=== PATIENT | female | born 1990 | race African-American/Black ===

== ENCOUNTER 2016-05-13 15:18 | Emergency (ER) | payer SELFPAY ==
[2016-05-13 15:24] VITALS: BP 121/71
--- NOTE | 2016-05-13 18:30 | ER Document Report ---
ED Medical Screen (RME) - General Stated Complaint: FEVER,COUGH,HEADACHE Mode of Arrival: Ambulatory Information source: Patient Notes: Patient presents to the emergency department with complaints of abdominal pain and burning sensation. She reports it started in her breast with her nipples hurting. She also reports constipation last bowel movement 4 days ago. She reports bloody stool when she had a bowel movement. She reports on point ongoing vomiting. With nausea. I have greeted and performed a rapid initial assessment of this patient. A comprehensive ED assessment and evaluation of the patient, analysis of test results and completion of the medical decision making process will be conducted by additional ED providers. TRAVEL OUTSIDE OF THE [place] IN LAST 30 DAYS: No - Related Data Allergies/Adverse Reactions: codeine Allergy (Verified 11/23/15 16:17) Physical Exam - Vital signs Vitals: Temp Pulse Resp BP Pulse Ox 102.5 F H 105 H 16 121/71 97 05/13/16 15:23 05/13/16 15:23 05/13/16 15:23 05/13/16 15:23 05/13/16 15:23 Course - Vital Signs Vital signs: Temp Pulse Resp BP Pulse Ox 102.5 F H 105 H 16 121/71 97 05/13/16 15:23 05/13/16 15:23 05/13/16 15:23 05/13/16 15:23 05/13/16 15:23
== END 2016-05-13 18:30 | disposition left against medical advice (07) ==
LOC: ER 15:18
DX: Z53.21 Procedure and treatment not carried out due to patient leaving prior to being seen by health care provider (principal)

== ENCOUNTER 2016-05-14 20:27 | Emergency (ER) | payer SELFPAY ==
--- NOTE | 2016-05-14 21:32 | ER Document Report ---
ED Medical Screen (RME) - General Stated Complaint: FEVER/EAR/BACK PAIN,CHILLS Time seen by provider: 21:31 Mode of Arrival: Ambulatory Information source: Patient Notes: 25-year-old female presents to ED for headache, fever and ear pain bilaterally back pain chills swollen glands cough and sore throat since Friday night. She states she came to the emergency room last night but the wait was too long so she left. Last menstrual period 04/23/2016. I have greeted and performed a rapid initial assessment of this patient. A comprehensive ED assessment and evaluation of the patient, analysis of test results and completion of medical decision making process will be conducted by an additional ED providers. TRAVEL OUTSIDE OF THE [place] IN LAST 30 DAYS: No - Related Data Allergies/Adverse Reactions: codeine Allergy (Verified 11/23/15 16:17)
[2016-05-14] MEDS ORDERED: IBUPROFEN 600 MG TABLET PO ONE (21:33)
[2016-05-14 21:35] VITALS: BP 122/78
[2016-05-14 22:01] LABS: ABSOLUTE LYMPHOCYTES (AUTO) 1.1 10^3/uL (0.5-4.7); ABSOLUTE MONOCYTES (AUTO) 0.7 10^3/uL (0.1-1.4); ABSOLUTE NEUT (AUTO) 4.5 10^3/uL (1.7-8.2); BASOPHILS % (AUTO) 0.5 % (0-2); HEMATOCRIT 41.1 % (36.0-47.0); HEMOGLOBIN 14.3 g/dL (12.0-15.5); HGB HCT DIFFERENCE 1.8; LYMPHOCYTES % (AUTO) 17.4 % (13-45); MEAN CORPUSCULAR HEMOGLOBIN 32.6 pg (27.0-33.4); MEAN CORPUSCULAR HGB CONC 34.7 g/dL (32.0-36.0); MEAN CORPUSCULAR VOLUME 94 fl (80-97); MONOCYTES % (AUTO) 10.8 % (3-13); RED BLOOD COUNT 4.38 10^6/uL (3.72-5.28); RED CELL DISTRIBUTION WIDTH 14.1 % (11.5-14.0); SEGMENTED NEUTROPHILS % (AUTO) 71.3 % (42-78); WHITE BLOOD COUNT 6.3 10^3/uL (4.0-10.5)
[2016-05-14 22:08] LABS: APPEARANCE,URINE CLEAR; BILIRUBIN,URINE NEGATIVE (NEGATIVE); GLUCOSE, URINE NEGATIVE (NEGATIVE); KETONES,URINE NEGATIVE (NEGATIVE); LEUKOCYTE ESTERASE,URINE NEGATIVE (NEGATIVE); NITRITE,URINE NEGATIVE (NEGATIVE); PROTEIN,URINE NEGATIVE (NEGATIVE); UROBILINOGEN,URINE NEGATIVE mg/dL (<2.0)
[2016-05-14 22:17] LABS: ALANINE AMINOTRANSFERASE 32 U/L (9-52); ALBUMIN 4.1 g/dL (3.5-5.0); ALKALINE PHOSPHATASE 57 U/L (38-126); ANION GAP 9 (5-19); ASPARTATE AMINO TRANSFERASE 41 U/L (14-36); BILIRUBIN,DIRECT 0.1 mg/dL (0.0-0.4); BILIRUBIN,TOTAL 0.4 mg/dL (0.2-1.3); BLOOD UREA NITROGEN 8 mg/dL (7-20); CALCIUM 9.2 mg/dL (8.4-10.2); CARBON DIOXIDE 27 mmol/L (22-30); CHLORIDE 100 mmol/L (98-107); CREATININE RESULT 0.97 mg/dL (0.52-1.25); GLUCOSE 94 mg/dL (75-110); SODIUM 135.6 mmol/L (137-145); TOTAL PROTEIN 6.9 g/dL (6.3-8.2)
== END 2016-05-15 | disposition left against medical advice (07) ==
LOC: ER 20:27
DX: Z53.9 Procedure and treatment not carried out, unspecified reason (principal); R50.9 Fever, unspecified; H92.03 Otalgia, bilateral; M54.9 Dorsalgia, unspecified
CPT/HCPCS: 36415; 80053; 81001; 84703; 85025; 87070; 87804; 87880; 99281

== ENCOUNTER 2017-01-03 09:45 | Emergency (ER) | payer MEDICAID ==
--- NOTE | 2017-01-03 10:26 | ER Document Report ---
ED General - General Mode of Arrival: Ambulatory Information source: Patient TRAVEL OUTSIDE OF THE [place] IN LAST 30 DAYS: No <ARTEMIO GRAHAM - Last Filed: 01/03/17 11:20> <HODAN MO - Last Filed: 01/03/17 14:10> - General Chief Complaint: Back Pain Stated Complaint: ABDOMINAL PAIN BACK PAIN WEIGHT LOSS Time Seen by Provider: 01/03/17 10:02 Notes: Patient is a 26 year old female presenting to the emergency department complaining of abdominal cramps and lower lumbar back pain onset 2 months ago. Patient states she has been under a lot of stress lately and has recently lost weight. Patients associated symptoms include fever and decreased appetite. (ARTEMIO GRAHAM) Denies vaginal bleeding, vaginal discharge or dysuria. (HODAN MO) - Related Data Allergies/Adverse Reactions: codeine Allergy (Verified 01/03/17 09:55) Past Medical History - General Information source: Patient - Social History Smoking Status: Former Smoker Chew tobacco use (# tins/day): No Frequency of alcohol use: None Drug Abuse: None Family History: Reviewed & Not Pertinent Patient has suicidal ideation: No Patient has homicidal ideation: No Renal/ Medical History: Denies: Hx Peritoneal Dialysis <ARTEMIO GRAHAM - Last Filed: 01/03/17 11:20> Review of Systems - Review of Systems Constitutional: Weight loss <ARTEMIO GRAHAM - Last Filed: 01/03/17 11:20> Physical Exam - Respiratory Respiratory status: No respiratory distress Breath sounds: Normal Chest palpation: Normal - Cardiovascular Rhythm: Regular Heart sounds: Normal auscultation - Abdominal Tenderness: Nontender - Back Back: Normal <ARTEMIO GRAHAM - Last Filed: 01/03/17 11:20> - Vital signs Interpretation: Normal - General General appearance: Alert In distress: None - HEENT Head: Normocephalic, Atraumatic Eyes: Normal Pupils: PERRL Mucous membranes: Moist - Cardiovascular Pulses: Normal: Radial Normal capillary refill: Yes - Neurological Neuro grossly intact: Yes - Psychological Associated symptoms: Normal affect, Normal mood - Skin Skin Temperature: Warm Skin Moisture: Dry Skin Color: Normal <HODAN MO - Last Filed: 01/03/17 14:10> - Vital signs Vitals: Temp Pulse Resp BP Pulse Ox 98.5 F 78 20 122/81 99 01/03/17 09:53 01/03/17 09:53 01/03/17 09:53 01/03/17 09:53 01/03/17 09:53 Course - Laboratory Result Diagrams: 01/03/17 10:55 01/03/17 10:55 <ARTEMIO GRAHAM - Last Filed: 01/03/17 11:20> - Laboratory Result Diagrams: 01/03/17 10:55 01/03/17 10:55 <HODAN MO - Last Filed: 01/03/17 14:10> - Re-evaluation Re-evalutation: 01/03/17 13:00 CBC unremarkable, CMP unremarkable, quantitative hCG is 28,810, urinalysis was initially ordered and that is what revealed a positive test, patient is O+ so RhoGam is not indicated, transvaginal ultrasound identifies a single intrauterine that is 6 weeks and 4 days by crown-rump length with a small subchorionic hemorrhage along the lower uterine segment. Discussed with patient the slightly increased risk of miscarriage given these findings, refer patient to [facility] and [facility]. Discharged home. (HODAN MO) - Vital Signs Vital signs: Temp Pulse Resp BP Pulse Ox 98.2 F 75 16 125/72 99 01/03/17 13:36 01/03/17 13:36 01/03/17 13:36 01/03/17 13:36 01/03/17 13:36 - Laboratory Laboratory results interpreted by me: 01/03/17 01/03/17 10:15 10:55 BUN 5 L Beta HCG, Quant 54132.00 H Urine Ascorbic Acid 20 H Urine HCG, Qual POSITIVE H Discharge <ARTEMIO GRAHAM - Last Filed: 01/03/17 11:20> <HODAN MO - Last Filed: 01/03/17 14:10> - Discharge Clinical Impression: First trimester Subchorionic hemorrhage in first trimester Qualifiers: Fetus number: single or unspecified fetus Qualified Code(s): O41.8X10 - Other specified disorders of amniotic fluid and membranes, first trimester, not applicable or unspecified Condition: Stable Disposition: HOME, SELF-CARE Additional Instructions: You are . care is best started as early in as possible. If you're unsure about continuing this , you should discuss this with your physician or with lead based paint technician at [facility]. You should take only medications approved by your physician. Acetaminophen can safely be taken for minor pains. As a rule, medication for chronic conditions such as asthma or seizures can safely be continued. You should discuss with the physician every medicine you take. Any regular exercise program can be continued. Talk to your physician, however, before engaging in competitive or demanding sports. Alcohol, smoking, and "street drugs" are dangerous to your baby. Cocaine is especially dangerous. Don't use any illicit drugs! There is a small amount of bleeding around the baby. This is associated with a very slightly increased risk of miscarriage. As long as you have no vaginal bleeding it is unlikely that she will miscarry. It is very important that you follow-up either with the health department or [facility] regarding your and the small amount of bleeding. Do not have sex until you have followed up with either [facility] or the health department. Please start taking an iron-containing vitamin. You may take antinausea medications in the form of Diclegis. Prescriptions: Doxylamine Succinate/Vit B6 [Yash Cao 10-10 mg Tablet] 1 each PO BIDP PRN # 30 tablet.dr HOU Reason: Referrals: [facility] [Provider Group] - Follow up as needed Scribe Attestation: 01/03/17 14:10 I personally performed the services described in the documentation, reviewed and edited the documentation which was dictated to the scribe in my presence, and it accurately records my words and actions. (HODAN MO) Scribe Documentation - Scribe Written by Abimbolaibmichelle:: Glo Vargas, 01/03/2017 10:27 acting as scribe for :: Krishan <ARTEMIO GRAHAM - Last Filed: 01/03/17 11:20>
[2017-01-03 10:40] LABS: APPEARANCE,URINE CLEAR; BILIRUBIN,URINE NEGATIVE (NEGATIVE); GLUCOSE, URINE NEGATIVE (NEGATIVE); KETONES,URINE NEGATIVE (NEGATIVE); LEUKOCYTE ESTERASE,URINE NEGATIVE (NEGATIVE); NITRITE,URINE NEGATIVE (NEGATIVE); PROTEIN,URINE NEGATIVE (NEGATIVE); URINE SPECIFIC GRAVITY 1.003; UROBILINOGEN,URINE NEGATIVE mg/dL (<2.0)
[2017-01-03 11:03] LABS: ABSOLUTE EOSINOPHILS # (AUTO) 0.1 10^3/uL (0.0-0.6); ABSOLUTE LYMPHOCYTES (AUTO) 1.8 10^3/uL (0.5-4.7); ABSOLUTE MONOCYTES (AUTO) 0.9 10^3/uL (0.1-1.4); ABSOLUTE NEUT (AUTO) 4.4 10^3/uL (1.7-8.2); BASOPHILS % (AUTO) 0.3 % (0-2); EOSINOPHILS % (AUTO) 0.8 % (0-6); HEMATOCRIT 41.5 % (36.0-47.0); HEMOGLOBIN 14.5 g/dL (12.0-15.5); LYMPHOCYTES % (AUTO) 25.1 % (13-45); MEAN CORPUSCULAR HEMOGLOBIN 33.2 pg (27.0-33.4); MEAN CORPUSCULAR VOLUME 95 fl (80-97); MONOCYTES % (AUTO) 12.3 % (3-13); RED BLOOD COUNT 4.38 10^6/uL (3.72-5.28); RED CELL DISTRIBUTION WIDTH 13.2 % (11.5-14.0); SEGMENTED NEUTROPHILS % (AUTO) 61.5 % (42-78); WHITE BLOOD COUNT 7.2 10^3/uL (4.0-10.5)
[2017-01-03 11:20] LABS: ALANINE AMINOTRANSFERASE 28 U/L (9-52); ALBUMIN 4.5 g/dL (3.5-5.0); ALKALINE PHOSPHATASE 41 U/L (38-126); ANION GAP 12 (5-19); ASPARTATE AMINO TRANSFERASE 16 U/L (14-36); BILIRUBIN,DIRECT 0.4 mg/dL (0.0-0.4); BILIRUBIN,TOTAL 0.5 mg/dL (0.2-1.3); BLOOD UREA NITROGEN 5 mg/dL (7-20); CALCIUM 9.9 mg/dL (8.4-10.2); CARBON DIOXIDE 28 mmol/L (22-30); CHLORIDE 101 mmol/L (98-107); CREATININE RESULT 0.77 mg/dL (0.52-1.25); GLUCOSE 82 mg/dL (75-110); SODIUM 140.5 mmol/L (137-145); TOTAL PROTEIN 7.4 g/dL (6.3-8.2)
--- NOTE | 2017-01-03 12:52 | RADIOLOGY REPORT (SQ) ---
EXAM DESCRIPTION: U/S OB TRANSVAG W/DOPPLER COMPLETED DATE/TIME: 01/03/2017 12:35 pm REASON FOR STUDY: cramping low abd pain, preg, r/o ectopic COMPARISON: None. TECHNIQUE: Endovaginal static and realtime grayscale images acquired of the pelvis. Additional selec demetrius spectral and color Doppler images recorded. All images stored on PACs. bHC,800 LIMITATIONS: None. FINDINGS: FETUS: Living intrauterine . EGA: By crown-rump length, 6 weeks 4 days ELISABET: 08/25/2017 FHR: 126 beats per minute. SUBCHORIONIC BLEED: Yes SIZE OF BLEED: Along the lower uterine segment, a subchorionic hemorrhage is present, 13 x 13 mm in s ize. UTERUS: No masses. No anomalies. Uterus is 10.6 x 6.6 x 5.6 cm in size CERVICAL LENGTH: Closed, 3 cm in length. RIGHT ADNEXA: Normal ovary with normal vascular flow. Right ovary 2.6 x 1.9 x 1.4 cm in size. No adnexal free fluid. No adnexal masses. LEFT ADNEXA: Normal ovary with normal vascular flow. Left ovary 2.3 x 2.5 x 1.8 cm in size. No adnexal free fluid. No adnexal masses. FREE FLUID: None. OTHER: No other significant finding. IMPRESSION: LIVING INTRAUTERINE . EGA 6 weeks 4 days by crown-rump length. Small subchorionic hemorrhage along the lower uterine segment Trimester of : First - 0 to 13 weeks. TECHNICAL DOCUMENTATION: JOB ID: [id number] [employer]- All Rights Reserved
[2017-01-03 13:37] VITALS: BP 125/72
== END 2017-01-03 13:36 | disposition home or self-care (01) ==
LOC: ER 09:45
DX: O41.8X10 Other specified disorders of amniotic fluid and membranes, first trimester, not applicable or unspecified (principal); M54.9 Dorsalgia, unspecified; R10.9 Unspecified abdominal pain; R63.4 Abnormal weight loss; M54.5 Low back pain; Z87.891 Personal history of nicotine dependence; Z3A.01 Less than 8 weeks gestation of pregnancy
CPT/HCPCS: 36415; 76817; 80053; 81001; 81025; 84702; 85025; 86900; 86901; 93976; 99284

== ENCOUNTER → 2017-01-23 | Outpatient (CLI) | payer SELFPAY ==
--- NOTE | 2017-01-23 15:48 | RADIOLOGY REPORT (SQ) ---
EXAM DESCRIPTION: U/S [id number] TRNABD 1GES W/ODOP COMPLETED DATE/TIME: 01/23/2017 3:26 pm REASON FOR STUDY: ENCOUNTER FOR SUPERVISION OF OTHER NORMAL , SECOND TRIMESTER Z34.81 ENCO UNTER FOR SUPRVSN OF NORMAL , FIRST TRIM COMPARISON: 01/03/2017. TECHNIQUE: Transabdominal static and realtime grayscale images acquired of the pelvis. Additional se lected spectral and color Doppler images recorded. All images stored on PACs. bHCG: Not applicable. LIMITATIONS: None. FINDINGS: FETUS: Living intrauterine . EGA: 9 week 4 day. ELISABET: 08/24/2017. FHR: 168 beats per minute. SUBCHORIONIC BLEED: No. SIZE OF BLEED: Not applicable. UTERUS: No masses. No anomalies. CERVICAL LENGTH: 2.3 cm. Closed. RIGHT ADNEXA: Normal ovary with normal vascular flow. No adnexal free fluid. No adnexal masses. LEFT ADNEXA: Normal ovary with normal vascular flow. No adnexal free fluid. No adnexal masses. FREE FLUID: None. OTHER: No other significant finding. IMPRESSION: LIVING INTRAUTERINE . EGA 9 WEEK 4 DAY. Trimester of : First - 0 to 13 weeks. TECHNICAL DOCUMENTATION: JOB ID: [id number] [employer]- All Rights Reserved
== END ==
LOC: RAD 15:00
PROVIDERS: ATTEND Nurse Practitioner Women's Health
DX: Z34.81 Encounter for supervision of other normal pregnancy, first trimester (principal)
CPT/HCPCS: 76801

== ENCOUNTER 2017-04-18 11:35 | Outpatient (CLI) | payer MEDICAID ==
[2017-04-18 12:45] LABS: APPEARANCE,URINE CLEAR; BILIRUBIN,URINE NEGATIVE (NEGATIVE); COLOR,URINE YELLOW; GLUCOSE, URINE NEGATIVE (NEGATIVE); KETONES,URINE 80 mg/dL (NEGATIVE); LEUKOCYTE ESTERASE,URINE NEGATIVE (NEGATIVE); NITRITE,URINE NEGATIVE (NEGATIVE); PROTEIN,URINE NEGATIVE (NEGATIVE); UROBILINOGEN,URINE NEGATIVE mg/dL (<2.0)
[2017-04-18 13:08] LABS: URINE AMPHETAMINES SCREEN NEGATIVE; URINE BARBITURATES SCREEN NEGATIVE; URINE BENZODIAZEPINES SCREEN NEGATIVE; URINE COCAINE SCREEN NEGATIVE; URINE MARIJUANA (THC) SCREEN NEGATIVE; URINE METHADONE SCREEN NEGATIVE; URINE PHENCYCLIDINE SCREEN NEGATIVE
[2017-04-18 13:37] LABS: ABSOLUTE LYMPHOCYTES (AUTO) 1.5 10^3/uL (0.5-4.7); ABSOLUTE MONOCYTES (AUTO) 0.7 10^3/uL (0.1-1.4); ABSOLUTE NEUT (AUTO) 7.3 10^3/uL (1.7-8.2); BASOPHILS % (AUTO) 0.1 % (0-2); HEMATOCRIT 34.5 % (36.0-47.0); HEMOGLOBIN 11.9 g/dL (12.0-15.5); LYMPHOCYTES % (AUTO) 16.2 % (13-45); MEAN CORPUSCULAR HEMOGLOBIN 31.1 pg (27.0-33.4); MEAN CORPUSCULAR HGB CONC 34.4 g/dL (32.0-36.0); MEAN CORPUSCULAR VOLUME 90 fl (80-97); MONOCYTES % (AUTO) 6.8 % (3-13); PLATELET COUNT 217 10^3/uL (150-450); RED BLOOD COUNT 3.82 10^6/uL (3.72-5.28); RED CELL DISTRIBUTION WIDTH 13.8 % (11.5-14.0); SEGMENTED NEUTROPHILS % (AUTO) 76.9 % (42-78); TOTAL CELLS COUNTED % (AUTO) 100 %; WHITE BLOOD COUNT 9.5 10^3/uL (4.0-10.5)
[2017-04-18] MEDS ORDERED: RINGERS SOLUTION,LACTATED 1,000 ML IV PRN (13:39)
[2017-04-18] MEDS ORDERED: DEXTROSE 5%-LACTATED RINGERS 1,000 ML IV PRN (13:39)
== END 2017-04-18 14:07 | disposition home or self-care (01) ==
LOC: LC 11:35
PROVIDERS: ATTEND Obstetrics & Gynecology
PROC: 4A1HXCZ Monitoring of Products of Conception, Cardiac Rate, External Approach (ICD-10-PCS; principal; 2017-04-18)
DX: O26.892 Other specified pregnancy related conditions, second trimester (principal); R10.2 Pelvic and perineal pain; Z3A.21 21 weeks gestation of pregnancy
CPT/HCPCS: 36415; 80307; 81001; 85025

== ENCOUNTER 2017-07-26 10:18 | Outpatient (CLI) | payer MEDICAID ==
--- NOTE | 2017-07-26 11:53 | Non Stress Test Report ---
Non Stress Test Datetime Report Generated by CPN: 07/26/2017 11:53 DEMOGRAPHIC EGA NST: 35.5 INDICATION Indication for Study: Ordered by Provider MONITORING Monitor Explained: Monitor Explained; Test Explained; Patient Verbalized Understanding Time on Monitor: 07/26/2017 10:43 Time off Monitor: 07/26/2017 11:08 NST Duration: 25 NST INTERVENTIONS NST Interventions: PO Hydration; Reposition Patient Physician Notified NST: Dr. England-Markel BABY A: [id number] BABY A Movement : Present Contraction Frequency : Irregular/pt denies FHR Baseline : 125 Accelerations : 15X15 Decelerations : None Variability : Moderate 6-25bpm NST Review: Meets Criteria for Reactive NST NST Review and Verified By : KAVYA Boone Results: Reactive NST COMMENTS NST Comments: Provider on unit, reviewed strip and order received to d/c home NST REPORT Report Trigger: Send Report
[2017-07-26 12:22] LABS: APPEARANCE,URINE SLIGHTLY-CLOUDY; BILIRUBIN,URINE NEGATIVE (NEGATIVE); COLOR,URINE YELLOW; GLUCOSE, URINE NEGATIVE (NEGATIVE); KETONES,URINE NEGATIVE (NEGATIVE); LEUKOCYTE ESTERASE,URINE TRACE (NEGATIVE); NITRITE,URINE NEGATIVE (NEGATIVE); PROTEIN,URINE NEGATIVE (NEGATIVE); URINE SPECIFIC GRAVITY 1.004; UROBILINOGEN,URINE NEGATIVE mg/dL (<2.0)
[2017-07-26 12:56] LABS: URINE AMPHETAMINES SCREEN NEGATIVE; URINE BARBITURATES SCREEN NEGATIVE; URINE BENZODIAZEPINES SCREEN NEGATIVE; URINE COCAINE SCREEN NEGATIVE; URINE MARIJUANA (THC) SCREEN NEGATIVE; URINE METHADONE SCREEN NEGATIVE; URINE PHENCYCLIDINE SCREEN NEGATIVE
== END 2017-07-26 11:15 | disposition home or self-care (01) ==
LOC: LC 10:18
PROVIDERS: ATTEND Obstetrics & Gynecology
PROC: 4A1HXCZ Monitoring of Products of Conception, Cardiac Rate, External Approach (ICD-10-PCS; principal; 2017-07-26)
DX: O47.03 False labor before 37 completed weeks of gestation, third trimester (principal); Z3A.35 35 weeks gestation of pregnancy
CPT/HCPCS: 59025; 80307; 81005

== ENCOUNTER 2017-08-05 17:19 | Outpatient (CLI) | payer MEDICAID ==
[2017-08-05] MEDS ORDERED: AZITHROMYCIN 250 MG TABLET PO ONE (17:52)
[2017-08-05] MEDS ORDERED: AZITHROMYCIN 250 MG TABLET ONE (17:57)
[2017-08-05 18:02] LABS: APPEARANCE,URINE CLEAR; BILIRUBIN,URINE NEGATIVE (NEGATIVE); COLOR,URINE STRAW; GLUCOSE, URINE NEGATIVE (NEGATIVE); KETONES,URINE NEGATIVE (NEGATIVE); LEUKOCYTE ESTERASE,URINE NEGATIVE (NEGATIVE); NITRITE,URINE NEGATIVE (NEGATIVE); PROTEIN,URINE NEGATIVE (NEGATIVE); URINE SPECIFIC GRAVITY 1.003; UROBILINOGEN,URINE NEGATIVE mg/dL (<2.0)
[2017-08-05 18:33] LABS: BACTERIA (WET MOUNT) 4+ BACTERIA SEEN; EPITHELIALS (WET MOUNT) 4+ EPITHELIALS SEEN; T.VAGINALIS (WET MOUNT) NO TRICHOMONAS SEEN; WBCS (WET MOUNT) 1+ WBCS SEEN; YEAST (WET MOUNT) NO YEAST SEEN
[2017-08-05 18:44] LABS: URINE AMPHETAMINES SCREEN NEGATIVE; URINE BARBITURATES SCREEN NEGATIVE; URINE BENZODIAZEPINES SCREEN NEGATIVE; URINE COCAINE SCREEN NEGATIVE; URINE MARIJUANA (THC) SCREEN NEGATIVE; URINE METHADONE SCREEN NEGATIVE; URINE PHENCYCLIDINE SCREEN NEGATIVE
--- NOTE | 2017-08-05 18:55 | Non Stress Test Report ---
Non Stress Test Datetime Report Generated by CPN: 08/05/2017 18:55 DEMOGRAPHIC EGA NST: 37.1 INDICATION Indication for Study: Other Indication for Study (NST) Other: LABOR CHECK MONITORING Monitor Explained: Monitor Explained; Test Explained; Patient Verbalized Understanding Time on Monitor: 08/05/2017 17:38 Time off Monitor: 08/05/2017 18:44 NST Duration: 66 NST INTERVENTIONS NST Interventions: PO Hydration; Reposition Patient Physician Notified NST: DrAngie Medina BABY A: [id number] BABY A Movement : Present Contraction Frequency : 7-11 FHR Baseline : 120 Accelerations : 15X15 Decelerations : None Variability : Moderate 6-25bpm NST Review: Meets Criteria for Reactive NST NST Review and Verified By : KAVYA Colindres Results: Reactive NST REPORT Report Trigger: Send Report
== END 2017-08-05 18:44 | disposition home or self-care (01) ==
LOC: LC 17:19
PROVIDERS: ATTEND Student in an Organized Health Care Education/Training Program
PROC: 4A1HXCZ Monitoring of Products of Conception, Cardiac Rate, External Approach (ICD-10-PCS; principal; 2017-08-05)
DX: O47.1 False labor at or after 37 completed weeks of gestation (principal); O98.313 Other infections with a predominantly sexual mode of transmission complicating pregnancy, third trimester; A56.8 Sexually transmitted chlamydial infection of other sites; Z3A.37 37 weeks gestation of pregnancy
CPT/HCPCS: 59025; 87210; 81005; 80307; Q0144

== ENCOUNTER 2018-07-10 10:14 | Emergency (ER) | payer MEDICAID ==
--- NOTE | 2018-07-10 10:32 | ER Document Report ---
ED Medical Screen (RME) - General Chief Complaint: Abdominal Pain Stated Complaint: ABDOMINAL PAIN Time Seen by Provider: 07/10/18 10:27 Primary Care Provider: BERNIE CARY CNM [Primary Care Provider] - Follow up as needed TRAVEL OUTSIDE OF THE [place] IN LAST 30 DAYS: No - HPI Notes: 07/10/18 10:30 Patient is a 27-year-old female approximately 9 weeks who presents complaining of mid abdominal pain that feels like a cramping sensation that began this morning. She has not had any vaginal discharge, odor, or bleeding. She is still able to eat and drink, but does have a decreased p.o. intake today. She is urinating normally and having normal bowel movements. Patient states that she did have confirmatory testing for , but never an ultrasound. Denies DEVLIN, fever, neck pain, URI, CP, SOB, dysuria, back pain, or rash. I have treated and performed a rapid initial assessment of this patient. A comprehensive ED assessment and evaluation of the patient, analysis of test results and completion of medical decision making process will be conducted by additional ED providers. PHYSICAL EXAMINATION: GENERAL: Well-appearing, well-nourished and in no acute distress. A&Ox4. Answers questions appropriately. LUNGS: Breath sounds clear to auscultation bilaterally and equal. No wheezes rales or rhonchi. HEART: Regular rate and rhythm without murmurs, rubs, gallops. ABDOMEN: Soft, nondistended abdomen. No guarding, no rebound. Normal bowel sounds present. No CVA tenderness bilaterally. + mild epigastric and mid abd tenderness (cannot elicit thorough abd exam w/o table, however). - Related Data Allergies/Adverse Reactions: codeine Allergy (Verified 08/05/17 17:56) Past Medical History Renal/ Medical History: Denies: Hx Peritoneal Dialysis Physical Exam - Vital signs Vitals: Temp Pulse Resp BP Pulse Ox 98.0 F 78 18 109/68 96 07/10/18 10:22 07/10/18 10:22 07/10/18 10:22 07/10/18 10:07/10/18 10:22 Course - Vital Signs Vital signs: Temp Pulse Resp BP Pulse Ox 98.0 F 78 18 109/68 96 07/10/18 10:22 07/10/18 10:22 07/10/18 10:22 07/10/18 10:22 07/10/18 10:22 Doctor's Discharge - Discharge Referrals: BERNIE CARY CNM [Primary Care Provider] - Follow up as needed
[2018-07-10 10:56] LABS: ABSOLUTE EOSINOPHILS # (AUTO) 0.1 10^3/uL (0.0-0.6); ABSOLUTE LYMPHOCYTES (AUTO) 1.9 10^3/uL (0.5-4.7); ABSOLUTE MONOCYTES (AUTO) 0.7 10^3/uL (0.1-1.4); ABSOLUTE NEUT (AUTO) 6.4 10^3/uL (1.7-8.2); BASOPHILS % (AUTO) 0.5 % (0-2); EOSINOPHILS % (AUTO) 0.7 % (0-6); HEMATOCRIT 42.6 % (36.0-47.0); HEMOGLOBIN 14.3 g/dL (12.0-15.5); LYMPHOCYTES % (AUTO) 20.7 % (13-45); MEAN CORPUSCULAR HEMOGLOBIN 30.1 pg (27.0-33.4); MEAN CORPUSCULAR HGB CONC 33.6 g/dL (32.0-36.0); MEAN CORPUSCULAR VOLUME 90 fl (80-97); PLATELET COUNT 270 10^3/uL (150-450); RED BLOOD COUNT 4.76 10^6/uL (3.72-5.28); RED CELL DISTRIBUTION WIDTH 12.9 % (11.5-14.0); SEGMENTED NEUTROPHILS % (AUTO) 70.1 % (42-78); TOTAL CELLS COUNTED % (AUTO) 100 %; WHITE BLOOD COUNT 9.1 10^3/uL (4.0-10.5)
[2018-07-10 10:59] LABS: AMORPHOUS SEDIMENT,URINE TRACE /HPF; APPEARANCE,URINE CLOUDY; BILIRUBIN,URINE NEGATIVE (NEGATIVE); COLOR,URINE YELLOW; GLUCOSE, URINE NEGATIVE (NEGATIVE); KETONES,URINE NEGATIVE (NEGATIVE); LEUKOCYTE ESTERASE,URINE LARGE (NEGATIVE); NITRITE,URINE NEGATIVE (NEGATIVE); PROTEIN,URINE NEGATIVE (NEGATIVE); URINE SPECIFIC GRAVITY 1.023; UROBILINOGEN,URINE NEGATIVE mg/dL (<2.0)
--- NOTE | 2018-07-10 11:14 | RADIOLOGY REPORT (SQ) ---
EXAM DESCRIPTION: U/S 1TRIMESTER/1GEST W/DOPPLER COMPLETED DATE/TIME: 07/10/2018 11:02 am REASON FOR STUDY: approx 9 wks preg/abd pain COMPARISON: None. TECHNIQUE: Transvaginal static and realtime grayscale images acquired of the pelvis. Additional julienne cted spectral and color Doppler images recorded. All images stored on PACs. bHCG: Not available. CLINICAL DATES: 9 week 0 days. LIMITATIONS: None. FINDINGS: FETUS: Single Living intrauterine . ULTRASOUND EGA: 9 week 0 days. ULTRASOUND ELISABET: 02/12/2019 EFW: Not applicable less than 20 weeks. CRL: 2.3 cm. FHR: 173 beats per minute. SURVEY: Too early to assess. AMNIOTIC FLUID: Adequate amount. PLACENTA: Not yet developed due to early gestation. SUBCHORIONIC BLEED: No. SIZE OF BLEED: Not applicable. UTERUS: No masses. No anomalies. CERVICAL LENGTH: 2.3 cm. Closed. RIGHT ADNEXA: Ovary not identified due to poor acoustical window. No adnexal free fluid. No adnexal masses. LEFT ADNEXA: Ovary not identified due to poor acoustical window. No adnexal free fluid. No adnexal masses. FREE FLUID: None. OTHER: No other significant finding. IMPRESSION: LIVING INTRAUTERINE . EGA 9 WEEK 0 DAYS. Trimester of : First - 0 to 13 weeks. TECHNICAL DOCUMENTATION: JOB ID: [id number]- All Rights Reserved rev Reading location - IP/workstation name: [email or web address]
[2018-07-10 11:16] LABS: ALANINE AMINOTRANSFERASE 12 U/L (9-52); ALBUMIN 4.1 g/dL (3.5-5.0); ALKALINE PHOSPHATASE 59 U/L (38-126); ANION GAP 13 (5-19); ASPARTATE AMINO TRANSFERASE 21 U/L (14-36); BILIRUBIN,DIRECT 0.2 mg/dL (0.0-0.4); BILIRUBIN,TOTAL 0.5 mg/dL (0.2-1.3); BLOOD UREA NITROGEN 12 mg/dL (7-20); CALCIUM 9.5 mg/dL (8.4-10.2); CARBON DIOXIDE 23 mmol/L (22-30); CHLORIDE 104 mmol/L (98-107); LIPASE 104.8 U/L (23-300); POTASSIUM 4.2 mmol/L (3.6-5.0); SODIUM 139.7 mmol/L (137-145); TOTAL PROTEIN 7.3 g/dL (6.3-8.2)
[2018-07-10 11:37] LABS: GLUCOSE 69 mg/dL (75-110)
[2018-07-10] MEDS ORDERED: NITROFURANTOIN MONOHYD/M-CRYST 100 MG CAPSULE PO ONE (11:59)
[2018-07-10] MEDS ORDERED: ACETAMINOPHEN 325 MG TABLET PO ONE (11:59)
--- NOTE | 2018-07-10 12:05 | ER Document Report ---
ED GI/ - General Chief Complaint: Abdominal Pain Stated Complaint: ABDOMINAL PAIN Time Seen by Provider: 07/10/18 10:27 Primary Care Provider: BERNIE CARY CNM [Primary Care Provider] - Follow up as needed Notes: 27-year-old female patient. . Approximately 10 weeks. Third . Began having severe pain in the periumbilical region. Has not let up. She has never had any pain like this with her previous so was concerned there was something wrong with the baby. Denies any vaginal disch arge. No vaginal bleeding. No fever. No vomiting. No diarrhea. Pain has let up a little bit since she has arrived to the ER. TRAVEL OUTSIDE OF THE [place] IN LAST 30 DAYS: No - HPI Patient complains to provider of: Abdominal pain - Related Data Allergies/Adverse Reactions: codeine Allergy (Verified 08/05/17 17:56) Past Medical History - General Information source: Patient - Social History Smoking Status: Unknown if Ever Smoked Frequency of alcohol use: None Drug Abuse: None Lives with: Spouse/Significant other Family History: Reviewed & Not Pertinent Patient has suicidal ideation: No Patient has homicidal ideation: No - Medical History Medical History: Negative Renal/ Medical History: Denies: Hx Peritoneal Dialysis Review of Systems - Review of Systems Notes: Constitutional: denies: Chills, Diaphoresis, Fever, Malaise, Weakness EENT: denies: Eye discharge, Blurred vision, Tearing, Double vision, Nose congestion, Nose discharge, Throat swelling, Mouth pain Cardiovascular: denies: Palpitations, Heart racing, Orthopnea, Dyspnea, Chest pain Respiratory: denies: Cough, Hurts to breathe, Wheezing, Shortness of breath Gastrointestinal: Complaining of abdominal pain, denies nausea, vomiting denies diarrhea. Genitourinary: denies: Burning, Dysuria, Discharge, Frequency, Flank pain, Hematuria. Positive for Musculoskeletal: denies: Joint pain, Joint swelling, Muscle pain, Muscle stiffness, back pain Hematologic/Lymphatic: denies: Anemia, Easy bleeding, Easy bruising, Blood clots Neurological/Psychological: denies: Confusion, Dementia, Depression, Loss of consciousness Skin: No lesions, no masses, no skin breakdown, no abscesses Physical Exam - Vital signs Vitals: Temp Pulse Resp BP Pulse Ox 98.0 F 78 18 109/68 96 07/10/18 10:22 07/10/18 10:22 07/10/18 10:22 07/10/18 10:22 07/10/18 10:22 Interpretation: Normal - General General appearance: Appears well, Alert - HEENT Head: Normocephalic, Atraumatic Eyes: Normal Pupils: PERRL - Respiratory Respiratory status: No respiratory distress Chest status: Nontender Breath sounds: Normal Chest palpation: Normal - Cardiovascular Rhythm: Regular Heart sounds: Normal auscultation Murmur: No - Abdominal Inspection: Normal Distension: No distension Bowel sounds: Normal Tenderness: Nontender. No: Guarding, Rebound Organomegaly: No organomegaly - Back Back: Normal, Nontender - Extremities General upper extremity: Normal inspection, Nontender, Normal color, Normal ROM, Normal temperature General lower extremity: Normal inspection, Nontender, Normal color, Normal ROM, Normal temperature, Normal weight bearing. No: Alexandre's sign - Neurological Neuro grossly intact: Yes Cognition: Normal Orientation: AAOx4 [place] Coma Scale Eye Opening: Spontaneous Madison Coma Scale Verbal: Oriented Arielle Coma Scale Motor: Obeys Commands Madison Coma Scale Total: 15 Speech: Normal Motor strength normal: LUE, RUE, LLE, RLE Sensory: Normal - Psychological Associated symptoms: Normal affect, Normal mood - Skin Skin Temperature: Warm Skin Moisture: Dry Skin Color: Normal Course - Re-evaluation Re-evalutation: 07/10/18 12:01 Very well-appearing 27-year-old female with intrauterine . No guarding. No rebound. Unable to elicit any tenderness on exam. Ultrasound shows a 9-week intrauterine . Urinalysis is positive for possible UTI so we will begin treatment. I did speak with the patient at length about the 24-hour follow-up which is needed. There is a possibility the patient could be having signs of early appendicitis so we will give her possible early appendicitis discharge instructions. More likely this is related to the rapidly expanding uterus however patient has been made aware that if the symptoms persist, she develops a fever, she has excessive nausea or anorexia she should return as appendicitis is a possibility. We will continue treatment for UTI. Will discharge at this time in stable condition. Laboratory 07/10/18 07/10/18 07/10/18 10:45 10:45 10:45 WBC 9.1 RBC 4.76 Hgb 14.3 Hct 42.6 MCV 90 MCH 30.1 MCHC 33.6 RDW 12.9 Plt Count 270 Seg Neutrophils % 70.1 Lymphocytes % 20.7 Monocytes % 8.0 Eosinophils % 0.7 Basophils % 0.5 Absolute Neutrophils 6.4 Absolute Lymphocytes 1.9 Absolute Monocytes 0.7 Absolute Eosinophils 0.1 Absolute Basophils 0.0 Sodium 139.7 Potassium 4.2 Chloride 104 Carbon Dioxide 23 Anion Gap 13 BUN 12 Creatinine 0.62 Est GFR ( Amer) > 60 Est GFR (Non-Af Amer) > 60 Glucose 69 L Calcium 9.5 Total Bilirubin 0.5 Direct Bilirubin 0.2 Neonat Total Bilirubin Not Reportable Neonat Direct Bilirubin Not Reportable Neonat Indirect Bili Not Reportable AST 21 ALT 12 Alkaline Phosphatase 59 Total Protein 7.3 Albumin 4.1 Lipase 104.8 Beta HCG, Quant 720466.00 H Total Beta HCG POSITIVE Urine Color YELLOW Urine Appearance CLOUDY Urine pH 5.0 Ur Specific [place] 1.023 Urine Protein NEGATIVE Urine Glucose (UA) NEGATIVE Urine Ketones NEGATIVE Urine Blood NEGATIVE Urine Nitrite NEGATIVE Urine Bilirubin NEGATIVE Urine Urobilinogen NEGATIVE Ur Leukocyte Esterase LARGE H Urine WBC (Auto) 3 Urine RBC (Auto) 4 Squamous Epi Cells Auto 25 Amorphous Sediment Auto TRACE Urine Mucus (Auto) RARE Urine Ascorbic Acid 40 H Obstetrics Ultrasound 07/10/18 10:30 IMPRESSION: LIVING INTRAUTERINE . EGA 9 WEEK 0 DAYS. Trimester of : First - 0 to 13 weeks. - Vital Signs Vital signs: Temp Pulse Resp BP Pulse Ox 98.0 F 78 18 109/68 96 07/10/18 10:22 07/10/18 10:22 07/10/18 10:22 07/10/18 10:22 07/10/18 10:22 - Laboratory Result Diagrams: 07/10/18 10:45 07/10/18 10:45 Laboratory results interpreted by me: 07/10/18 07/10/18 10:45 10:45 Glucose 69 L Beta HCG, Quant [id number] H Ur Leukocyte Esterase LARGE H Urine Ascorbic Acid 40 H Discharge - Discharge Clinical Impression: Qualifiers: Weeks of gestation: 9 weeks Qualified Code(s): Z3A.09 - 9 weeks gestation of Abdominal pain Qualifiers: Abdominal location: periumbilical Qualified Code(s): R10.33 - Periumbilical pain Condition: Good Disposition: HOME, SELF-CARE Instructions: Observation for Appendicitis ([facility]), ([facility]), Urinary Tract Infection ([facility]) Additional Instructions: It appears that he may have a mild urinary tract infection. We do prefer to treat this in patients. We are starting you on some Macrobid. You may take Tylenol for your pain but do not take more than 3 g in a 24-hour period.. In the event that your abdominal pain is getting worse especially over the next 24 to 48 hours it is imperative that you return as your presenting symptoms could be the signs of early appendicitis. Appendicitis often times begins with pain around the umbilicus (bellybutton) and then begins to radiate to the right lower quadrant. If you develop fever, chills, nausea and vomiting and lose the to desire to eat then you need to return for repeat evaluation sooner rather than later. Prescriptions: Nitrofurantoin/Nitrofuran Mac [Macrobid 100 mg Capsule] 1 tab PO BID 10 Days #20 capsule Referrals: BERNIE CARY CNM [Primary Care Provider] - Follow up as needed
[2018-07-10 12:40] VITALS: BP 112/84
== END 2018-07-10 12:40 | disposition home or self-care (01) ==
LOC: ER 10:14
DX: O26.91 Pregnancy related conditions, unspecified, first trimester (principal); R10.33 Periumbilical pain; Z3A.10 10 weeks gestation of pregnancy; Z88.6 Allergy status to analgesic agent
CPT/HCPCS: 99284; 36415; 87086; 84702; 83690; 85025; 80053; 81001; 76801; 93976; J3490 ×2; J8499

== ENCOUNTER → 2018-07-16 | Outpatient (CLI) | payer MEDICAID ==
--- NOTE | 2018-07-16 13:53 | RADIOLOGY REPORT (SQ) ---
EXAM DESCRIPTION: U/S [id number] TRNABD 1GES W/ODOP COMPLETED DATE/TIME: 07/16/2018 12:47 pm REASON FOR STUDY: ENCOUNTER FOR SUPRVSN OF NORMAL , FIRST TRIMESTER Z34.81 ENCOUNTER FOR S UPRVSN OF NORMAL , FIRST TRIM COMPARISON: 07/10/2018 TECHNIQUE: Transabdominal static and realtime grayscale images acquired of the pelvis. Additional se lected spectral and color Doppler images recorded. All images stored on PACs. [facility]: Not available. CLINICAL DATES: LMP 05/08/2018. 9 weeks 6 days LIMITATIONS: None. FINDINGS: FETUS: Single Living intrauterine . ULTRASOUND EGA: 9 weeks 4 days ULTRASOUND ELISABET: 02/14/2019 EFW: Not applicable less than 20 weeks. CRL: 2.8 cm FHR: 175 beats per minute. SURVEY: Too early to assess. AMNIOTIC FLUID: Adequate amount. PLACENTA: Not yet developed due to early gestation. SUBCHORIONIC BLEED: No SIZE OF BLEED: Not applicable. UTERUS: No masses or anomalies. 10.7 x 8.6 x 6.8 cm. CERVICAL LENGTH: 2.6 cm. Closed. RIGHT ADNEXA: Normal ovary with normal vascular flow. 2.8 x 2.2 x 1.9 cm. No adnexal free fluid. No adnexal masses. LEFT ADNEXA: Normal ovary with normal vascular flow. 2.6 x 2.4 x 3.6 cm. No adnexal free fluid. No adnexal masses. FREE FLUID: None. OTHER: No other significant finding. IMPRESSION: LIVING INTRAUTERINE . EGA 9 weeks 4 days. Trimester of : First - 0 to 13 weeks. TECHNICAL DOCUMENTATION: JOB ID: [id number] [employer]- All Rights Reserved rev Reading location - IP/workstation name: [email or web address]
== END ==
LOC: RAD 12:13
PROVIDERS: ATTEND Midwife
DX: Z34.81 Encounter for supervision of other normal pregnancy, first trimester (principal)
CPT/HCPCS: 76801

== ENCOUNTER 2018-10-14 18:51 | Outpatient (CLI) | payer MEDICAID ==
[2018-10-14 19:51] LABS: APPEARANCE,URINE SLIGHTLY-CLOUDY; BILIRUBIN,URINE NEGATIVE (NEGATIVE); COLOR,URINE YELLOW; GLUCOSE, URINE NEGATIVE (NEGATIVE); KETONES,URINE NEGATIVE (NEGATIVE); LEUKOCYTE ESTERASE,URINE TRACE (NEGATIVE); NITRITE,URINE NEGATIVE (NEGATIVE); PROTEIN,URINE NEGATIVE (NEGATIVE); URINE SPECIFIC GRAVITY 1.006; UROBILINOGEN,URINE NEGATIVE mg/dL (<2.0)
[2018-10-14 20:07] LABS: URINE AMPHETAMINES SCREEN NEGATIVE; URINE BARBITURATES SCREEN NEGATIVE; URINE BENZODIAZEPINES SCREEN NEGATIVE; URINE COCAINE SCREEN NEGATIVE; URINE MARIJUANA (THC) SCREEN NEGATIVE; URINE METHADONE SCREEN NEGATIVE; URINE PHENCYCLIDINE SCREEN NEGATIVE
== END 2018-10-14 20:07 | disposition home or self-care (01) ==
LOC: LC 18:51
PROVIDERS: ATTEND Obstetrics & Gynecology
PROC: 4A1HXCZ Monitoring of Products of Conception, Cardiac Rate, External Approach (ICD-10-PCS; principal; 2018-10-14)
DX: O47.02 False labor before 37 completed weeks of gestation, second trimester (principal); Z3A.22 22 weeks gestation of pregnancy
CPT/HCPCS: 80307; 81001

== ENCOUNTER → 2019-11-12 | Outpatient (CLI) | payer SELFPAY ==
--- NOTE | 2019-11-12 13:34 | RADIOLOGY REPORT (SQ) ---
EXAM DESCRIPTION: U/S [id number] TRNABD 1GES W/ODOP IMAGES COMPLETED DATE/TIME: 11/12/2019 1:08 pm REASON FOR STUDY: ENCOUNTER FOR SUPRVSN OF NORMAL , FIRST TRIMESTER Z34.81 ENCOUNTER FOR S UPRVSN OF NORMAL , FIRST TRIM COMPARISON: None. TECHNIQUE: Transabdominal static and realtime grayscale images acquired of the pelvis. Additional se lected spectral and color Doppler images recorded. All images stored on PACs. bHCG: Not available. CLINICAL DATES: 10 weeks 6 days. LIMITATIONS: None. FINDINGS: FETUS: Single Living intrauterine . ULTRASOUND EGA: 10 weeks 4 days. ULTRASOUND ELISABET: 06/05/2020 EFW: Not applicable less than 20 weeks. CRL: 3.7 cm. FHR: 157 beats per minute. SURVEY: Too early to assess. AMNIOTIC FLUID: Adequate amount. PLACENTA: Not yet developed due to early gestation. SUBCHORIONIC BLEED: No SIZE OF BLEED: Not applicable. UTERUS: No masses. No anomalies. CERVICAL LENGTH: 2.7 cm. Closed. RIGHT ADNEXA: Normal ovary with normal vascular flow. 2.8 x 2.1 x 2.1 cm. No adnexal free fluid. No adnexal masses. LEFT ADNEXA: Normal ovary with normal vascular flow. 4.5 x 4 x 2.7 cm. 3.2 x 2.6 x 2.1 cm corpus sukhdeep teum. No adnexal free fluid. No adnexal masses. FREE FLUID: None. OTHER: No other significant finding. IMPRESSION: LIVING INTRAUTERINE . EGA 10 weeks 4 days Trimester of : First trimester - 0 to 13 weeks. TECHNICAL DOCUMENTATION: JOB ID: [id number] [employer]- All Rights Reserved rev Reading location - IP/workstation name: [email or web address]
== END ==
LOC: RAD 12:33
PROVIDERS: ATTEND Nurse Practitioner Family
DX: Z34.81 Encounter for supervision of other normal pregnancy, first trimester (principal); Z3A.10 10 weeks gestation of pregnancy
CPT/HCPCS: 76801